=== PATIENT | female | born 1980 ===

== ENCOUNTER 2020-04-25 14:59 | Emergency (ER) | payer OTHER ==
[~2020-04-25] VITALS: Ht 172.7 cm; Wt 99.8 kg
== END 2020-04-25 16:17 | disposition home or self-care (01) ==
LOC: ER 14:59
DX: S09.90XA Unspecified injury of head, initial encounter (principal); W22.8XXA Striking against or struck by other objects, initial encounter
CPT/HCPCS: 70450; 99283-25; A9270-GY